=== PATIENT | female | born 1995 | race American Indian/Alaskan Native ===

== ENCOUNTER 2021-03-19 23:07 | Emergency (ER) | payer MEDICAID | END 2021-03-20 01:00 | LOC: ED 23:07 | DX: Z04.1 Encounter for examination and observation following transport accident (principal); V87.7XXA Person injured in collision between other specified motor vehicles (traffic), initial encounter; Y93.89 Activity, other specified; Y92.488 Other paved roadways as the place of occurrence of the external cause; Y99.8 Other external cause status ==

== ENCOUNTER 2021-03-20 05:43 | Emergency (ER) | payer MEDICAID, OTHER ==
[2021-03-20 05:56] VITALS: BP 166/80
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
== END 2021-03-20 08:18 | disposition home or self-care (01) ==
LOC: ED 05:43
DX: S29.012A Strain of muscle and tendon of back wall of thorax, initial encounter (principal); V49.49XA Driver injured in collision with other motor vehicles in traffic accident, initial encounter; Y93.89 Activity, other specified; Y92.89 Other specified places as the place of occurrence of the external cause; Y99.8 Other external cause status
CPT/HCPCS: 99282